=== PATIENT | male | born 1940 | race Caucasian/White ===

== ENCOUNTER 2017-03-17 05:45 | Inpatient (IN) | payer MEDICARE, OTHER ==
[2017-03-15 14:00] LABS: HEMOGLOBIN 13.4 g/dL (13.6-17.8)
[2017-03-15 14:13] LABS: BUN (BLOOD UREA NITROGEN) 12 MG/DL (6-23); CALCIUM, SERUM 9.5 MG/DL (8.5-10.4); CHLORIDE, SERUM 105 MMOL/L (96-112); CO2 (CARBON DIOXIDE) 29 MMOL/L (24-34); CREATININE 0.91 MG/DL (0.70-1.30); GFR AFRICAN AMERICAN 93 ML/MIN (>=60); GFR NON AFRICAN AMERICAN 80 ML/MIN (>=60); GLUCOSE, SERUM 87 MG/DL (60-99); POTASSIUM, SERUM 4.1 MMOL/L (3.5-5.3); SODIUM, SERUM 139 MMOL/L (135-148)
[~2017-03-17] VITALS: Ht 182.9 cm; Wt 79.8 kg
--- NOTE | ~2017-03-17 | CN ---
Consultation Report [address] [place]. [address] NAME: TALIB LEON JR : 36 STATUS : DIS IN PAT#: [id number] AGE: 76 ADM/REG DATE : 03/17/17 MR#: [id number] REPORT SERV DATE: 03/20/17 DICTATED BY: GAGAN WHELAN DATE: 03/20/17 REPORT STATUS : Draft TRANSCRIBED BY: MODL DATE: 03/20/17 CONSULTATION DATE OF CONSULTATION: 03/19/2017 REASON FOR CONSULTATION: Hematuria. HISTORY OF PRESENT ILLNESS: Mr. Talib Leon is a 76-year-old male, with a history of a back surgery. He was recovering. He had a Calvo catheter. It was pulled on what lead to hematuria. The Calvo catheter was removed and he has not yet voided. He denies any prior history of hematuria, denies any voiding troubles at home. I have been asked to consult regarding his catheter management. PAST MEDICAL HISTORY: Hypertension, GERD, arthritis, peripheral neuropathy, and chronic pain. PAST SURGICAL HISTORY: C-spine surgery, L-spine surgery, cholecystectomy, and hernia repair. FAMILY HISTORY: Noncontributory. SOCIAL HISTORY: He does not smoke, drink, or use illegal drugs. Lives with his . MEDICATIONS: Reviewed and listed on the chart. ALLERGIES: TO TEGRETOL. REVIEW OF SYSTEMS: A 12-point review of systems was performed. Pertinent positives are listed in the HPI. PHYSICAL EXAMINATION: VITAL SIGNS: Temperature is 97.8, pulse is in the 80s, blood pressure is 150/72, saturating 97% on room air. He is in no acute distress. Appears his stated age. HEENT: Head is normocephalic and atraumatic. LUNGS: Breathing is nonlabored. He is not in respiratory distress. HEART: Pulse is regular in rate and rhythm. ABDOMEN: Soft, nontender, and nondistended. There is no CVA tenderness. GENITOURINARY: He has normal external genitalia. NEUROLOGIC: He is alert and oriented x3. EXTREMITIES: There is no cyanosis or edema. LABORATORY DATA: No pertinent labs. IMAGING: No pertinent imaging. Consultation Report [address] [place]. [address] NAME: TALIB LEON JR : 38 STATUS : DIS IN PAT#: [id number] AGE: 76 ADM/REG DATE : 03/17/17 MR#: [id number] REPORT SERV DATE: 03/20/17 DICTATED BY: GAGAN WHELAN DATE: 03/20/17 REPORT STATUS : Draft TRANSCRIBED BY: DREW DATE: 03/20/17 ASSESSMENT AND PLAN: Mr. Leon had a partial traumatic Calvo catheter removal with hematuria. His catheter has been removed. We are waiting on him to void. He has no pre hospital voiding dysfunction, therefore, I suspect he will be okay. If he is able to void, no further intervention is needed. I expect it to be red which should clear with time and hydration. If he developed significant hematuria or he was unable to void, please place an 18-Dominican Coude catheter. His urine is reasonably clear of any discharge the catheter can be removed in 5 days. Please call with further questions. Thank you for this consultation. ISAIAH/DREW Gagan Whelan MD / [id number] CC: MD Clay Montano M.D.
--- NOTE | ~2017-03-17 | OP ---
Record Of Operation [facility] [address] [place]. [address] NAME: TALIB HAWKINS JR : 36 STATUS : DIS IN PAT#: [id number] AGE: 76 ADM/REG DATE : 03/17/17 MR#: [id number] REPORT SERV DATE: 03/22/17 DICTATED BY: ANNETTE DELEON II DATE: 03/22/17 REPORT STATUS : Draft TRANSCRIBED BY: MODL DATE: 03/22/17 DATE OF PROCEDURE: 03/17/2017 PREOPERATIVE DIAGNOSES: 1. 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 2. Left lower extremity radiculopathy. 3. History of L2 to L5 fusion. POSTOPERATIVE DIAGNOSES: 1. 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 2. Left lower extremity radiculopathy. 3. History of L2 to L5 fusion. 4. 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 5. Heterotopic ossification L4-L5. PROCEDURES: 1. Posterior laminectomy and facetectomy, L1-2, L5-S1. 2. Revision facetectomy, L4-L5. 3. Interbody arthrodesis, L1-L2. 4. Application of prosthetic device, L1-L2. 5. Posterolateral arthrodesis, L1-L2, L4-L5, and L5-S1. 6. Use of the local autograft, allograft substitute, and bone morphogenic protein. 7. Posterior instrumentation L1-L2, L5-S1, with revision hardware, L4-L5. 8. Use of the microscope and stereotactic spinal imaging. FLUIDS: 1700 mL LR. ESTIMATED BLOOD LOSS: 125 mL. DRAINS: One drain. COMPLICATIONS: None. PREOPERATIVE HISTORY: This is a very friendly 76-year-old gentleman, who reports his leg pain, following his August surgery was improved for a while, but has now returned. We discussed the pros and cons of surgery. I felt that the facet at L5-S1 was significantly hypertrophic and was likely causing some of his leg pain. However, L1 and L2 could not be totally discounted because of the moderate canal stenosis at this level. I felt overall that the best course of action was to decompress L5-S1 and L1-L2. The this was again adjacent to his L2 to L5 fusion. We discussed the pros and cons of surgery. He was predominantly leg pain, again, this leg pain had returned fairly shortly after the surgery. We discussed the risks which include, but not limited to infection, abscess, CSF leak, and footdrop. We discussed also complications such as heart attack and stroke. DESCRIPTION OF PROCEDURE: After informed consent was obtained, the patient was brought to the operating room at his request, and general anesthesia was achieved. He was placed in Record Of Operation [address] [id number] NAME: TALIB HAWKINS JR : 38 STATUS : DIS IN PAT#: [id number] AGE: 76 ADM/REG DATE : 03/17/17 MR#: [id number] REPORT SERV DATE: 03/22/17 DICTATED BY: ANNETTE DELEON II DATE: 03/22/17 REPORT STATUS : Draft TRANSCRIBED BY: DREW DATE: 03/22/17 prone position. The back was prepped and draped in a sterile fashion. The iliac crest on the right was used for placement of the stereotactic pin. The intraoperative CT scan was completed and stereotactic guidance then used throughout the case. During the inspection of the intraoperative CT scan, it was obvious that the L5 screws appeared to have significant loosening around them (radiolucencies with halo effect). At this point, the incision was then made to the left and dissection was carried down to the previous hardware ([employer]phate[employer]). We then removed the jackie from L2-5. The L5 screws again clearly were loose. These were now removed. At this point, I was suspicious of nonunion at L4-L5, with the hardware loosening, and also felt that the stenosis appeared to have re-developed at this level consistent with heterotopic ossification. At this point, with the microscope now in place, and the minimally invasive retractor, the L4-L5 level was now evaluated. Again, there was macro motion noted. The nonunion was clearly present and likely this along with the recurrent stenosis from heterotopic ossification likely was causing him pain. At this point, the high speed bur and the curved curettes were used to perform a revision facetectomy and laminectomy for decompression of the L5 nerve root. We were able to remove additional lamina and facet and also then removed the heterotopic ossification to decompress the L5 nerve root. At this point, I was pleased with the decompression of the L5 nerve root at this level. Next, we worked down to L5-S1 where upon the significantly hypertrophic facet was now removed and the urrjlzf-mw-hjnribl decompression was achieved. The L5 nerve root did appear to be compressed in the foraminal zone by the large facet. At this point, the S1 nerve root was now also decompressed. There was moderate compression of this particular nerve root. Next, we then irrigated the area. We then worked up to L1-L2, where upon the facet was now removed under the microscope. A wswbdmr-[id number]-[id number] decompression was achieved including decompression of the canal in the lateral recess and the foramen. Next, the interbody arthrodesis was initiated with the diskectomy. The endplates were now prepared with the neha, the curettes, and the pituitary rongeurs. Punctate bleeding bone was identified on both endplates. Next, the area was now well irrigated, followed by placement of local autograft into the anterior column. We then also placed allograft substitute, followed by the prosthetic device. The prosthetic device was well placed into the anterior column of L1-L2. Next, we then placed the pedicle screw into L1. We then replaced the larger diameter screw into L5 on the left. Next, we then placed a large screw into S1. The bone quality was reasonable. At this point on the right side, we then once again placed a screw at L1 using stereotactic guidance. We also then placed a screw into S1. Again, the loose L5 screw was now removed and a larger diameter placed. At this point, a repeat CT scan confirmed acceptable Record Of Operation [address] [address] NAME: TALIB HAWKINS JR : 36 STATUS : DIS IN PAT#: [id number] AGE: 76 ADM/REG DATE : 03/17/17 MR#: [id number] REPORT SERV DATE: 03/22/17 DICTATED BY: ANNETTE DELEON II DATE: 03/22/17 REPORT STATUS : Draft TRANSCRIBED BY: MODL DATE: 03/22/17 placement of the implants. The rods were then well assembled and final tightening performed. Next, we then decorticated the transverse processes of L1-L2 on the right. The facet capsule was also removed, and the facet denuded of cartilage, and overall decorticated. On the right, we also then removed the facet capsule at L5-S1 and the hypertrophic facet was now denuded of its cartilage. The area was now decorticated. We also did the same at L4-5. Local autograft, allograft substitute, and bone morphogenic protein were then placed along the decorticated surfaces at L1-L2, L4-L5 and L5-S1. A deep drain was placed on the left side followed by standard closure bilaterally. Standard dressings were applied. The patient was then extubated, and then transferred to PACU in stable condition. GARRISON/DREW Annette Deleon II, M.D. / [id number] CC: Sandra Quinteros II, M.D.
[~2017-03-17 05:45] MED LIST: AMBIEN CR12.5 MG PO; ASAB PO; CIALIS20 MG PO; CIALIS5 MG PO; COD LIVER; COD LIVER PO; COZ50 PO; DIL2TAB PO; FISH-EPA1000 MG PO; GABAPENTIN PO; LEVAQUIN750 MG PO; LISINOPRIL40 MG PO; MOBIC7.5 PO; MUCINEX600 MG PO; NEUR400 PO; NEURONTIN; NEURONTIN PO; NORV5 PO; OXYCON20 PO; OXYCON40 PO; OXYCONTIN PO; PERCOCET 10/3251 TAB PO; PERCOCET PO; PERCOCET1 TA4 PO; PREV30 PO; PRILO PO; PRIN10 PO; THERAMINE CAPS1 EACH PO; V2 PO; VIAGRA25 PO; VITAMIN D31000 UNIT PO; VITC500 PO; VITE PO; ZANAFLEX; ZANAFLEX 4 MG TA4 MG PO; ZANAFLEX PO; ZANAFLEX2 MG PO; [UNRECOGNIZED DRUG - OTHER]; [UNRECOGNIZED DRUG - OTHER] PO; [UNRECOGNIZED DRUG - OTHER] PO; [UNRECOGNIZED DRUG - REMARK] TOP
== END 2017-03-20 13:11 | disposition home health service (06) | DRG 457 ==
LOC: ENRESERVTM → ENRESERV → ENRESERVDT → 3SO 09:55 → SDC/OF 09:55 → PACU 17:35 → 3SO 18:25
PROVIDERS: Orthopaedic Surgery
PROC: 0SP004Z Removal of Internal Fixation Device from Lumbar Vertebral Joint, Open Approach (ICD-10-PCS; 2017-03-17)
PROC: 0ST20ZZ Resection of Lumbar Vertebral Disc, Open Approach (ICD-10-PCS; 2017-03-17)
PROC: 0SG00AJ Fusion of Lumbar Vertebral Joint with Interbody Fusion Device, Posterior Approach, Anterior Column, Open Approach (ICD-10-PCS; principal; 2017-03-17 11:45)
PROC: 0SG1071 Fusion of 2 or more Lumbar Vertebral Joints with Autologous Tissue Substitute, Posterior Approach, Posterior Column, Open Approach (ICD-10-PCS; 2017-03-17 11:45)
PROC: 0SG3071 Fusion of Lumbosacral Joint with Autologous Tissue Substitute, Posterior Approach, Posterior Column, Open Approach (ICD-10-PCS; 2017-03-17 11:45)
DX: M41.9 Scoliosis, unspecified (principal); M96.0 Pseudarthrosis after fusion or arthrodesis; G62.9 Polyneuropathy, unspecified; R31.9 Hematuria, unspecified; M51.16 Intervertebral disc disorders with radiculopathy, lumbar region; Y83.8 Other surgical procedures as the cause of abnormal reaction of the patient, or of later complication, without mention of misadventure at the time of the procedure; Z98.1 Arthrodesis status; K21.9 Gastro-esophageal reflux disease without esophagitis; Z79.899 Other long term (current) drug therapy; Z87.891 Personal history of nicotine dependence; I10 Essential (primary) hypertension; M48.06 Spinal stenosis, lumbar region; M48.07 Spinal stenosis, lumbosacral region
CPT/HCPCS: 80048; 82962; 85014; 85018; 87641; 88300; 88304; 88311; 93005; 97116-GP; 97162-GP; A9270-GY; C1713; G8978-CK-GP; G8979-CI-GP; J0690; J1170; J2250; J2370; J2405; J2710; J3010; J3370